=== PATIENT | female | born 1965 | race Caucasian/White ===

== ENCOUNTER 2022-03-11 06:30 | Emergency (ER) | payer OTHER ==
[~2022-03-11] VITALS: Ht 172.7 cm; Wt 72.7 kg
[~2022-03-11 06:30] MED LIST: ALBU8.5H8 IH; ATOR20TA86 PO; CHOL25TA4 PO; CIPR250T6 PO; DULO-113 PO; ESOM20CA31 PO; GABA-1201 PO; HYDR200T83 PO; HYDR25TA2 PO; LISI-894 PO; MELO-381 PO; ROPI0.2535 PO; [UNRECOGNIZED DRUG - CODE] PO
[2022-03-11 11:26] VITALS: BP 126/72
== END 2022-03-11 11:49 | disposition home or self-care (01) ==
LOC: EMS 06:31
DX: S86.911A Strain of unspecified muscle(s) and tendon(s) at lower leg level, right leg, initial encounter (principal); M25.461 Effusion, right knee; F41.9 Anxiety disorder, unspecified; K21.9 Gastro-esophageal reflux disease without esophagitis; E78.00 Pure hypercholesterolemia, unspecified; I10 Essential (primary) hypertension; F32.9 Major depressive disorder, single episode, unspecified; Z91.09 Other allergy status, other than to drugs and biological substances; X58.XXXA Exposure to other specified factors, initial encounter; Y93.89 Activity, other specified; Y92.89 Other specified places as the place of occurrence of the external cause; Y99.8 Other external cause status
CPT/HCPCS: 29530; 93971; 99284; Z7502

== ENCOUNTER 2023-07-07 06:59 | Emergency (ER) | payer OTHER ==
[~2023-07-07] VITALS: Ht 165.1 cm; Wt 79.5 kg
[~2023-07-07 06:59] MED LIST changes: +ATOR20TA PO; -ATOR20TA86 PO; +[UNRECOGNIZED DRUG - CODE] PO; -[UNRECOGNIZED DRUG - CODE] PO
[2023-07-07 07:13] VITALS: BP 143/77; PULSE 100; RESP 18; TEMP 98.1
[2023-07-07 07:22] LABS: COVID AG,FIA SOURCE NASAL SWAB
[2023-07-07 07:52] LABS: SARS-COV2 (COVID) ANTIGEN,FIA Negative (Negative)
[2023-07-07 07:53] LABS: INFLUENZA TYPE A NEGATIVE FOR TYPE A (NEGATIVE); INFLUENZA TYPE B NEGATIVE FOR TYPE B (NEGATIVE)
== END 2023-07-07 08:30 | disposition home or self-care (01) ==
LOC: EMS 06:59
DX: R05.9 Cough, unspecified (principal); R09.81 Nasal congestion; Z20.822 Contact with and (suspected) exposure to COVID-19
CPT/HCPCS: 87804; 99283